=== PATIENT | female | born 1940 | race Caucasian/White ===

== ENCOUNTER 2018-06-09 04:25 | Day surgery (SDC) | payer MEDICARE, OTHER ==
[2018-06-08 16:42] VITALS: BP 159/82
--- NOTE | 2018-06-08 16:58 | PCM.EKG ---
[facility] Test Date: 2018-06-08 Test Time: 16:52:50 Pat Name: CHALINO MUKHERJEE Department: Room: Gender: F Production [employer]: DIANN : 1940 Requested By: YELENA LOPEZ Order Number: [id number] Reading MD: Measurements Intervals [place] Rate: 76 P: 67 SD: 162 QRS: 74 QRSD: 84 T: 51 QT: 408 QTc: 459 Interpretive Statements Normal sinus rhythm ST abnormality, possible digitalis effect Abnormal ECG No previous ECG available for comparison Please click the below link to view image of tracing.
[2018-06-08 17:10] LABS: BASOPHIL % 0.2 % (0.0-0.2); EOSINOPHIL # 0.2 10^3/uL (0.0-0.2); EOSINOPHIL % 1.9 % (0.0-5.0); HEMOGLOBIN 13.9 g/dL (12.0-15.0); LYMPHOCYTES % 18.1 % (24.0-44.0); MEAN CELL HGB 29.4 pg (26-34); MEAN CELL HGB CONCENTRATION 32.6 g/dL (33-37); MEAN CORP VOLUME 90.3 fL (78-100); MEAN PLATELET VOLUME 10.5 fL (7.8-11.0); MONOCYTES # 0.7 10^3/uL (0.3-0.8); MONOCYTES % 6.6 % (5.0-12.0); NEUTROPHIL # 8.1 10^3/uL (1.8-7.7); RED CELL DISTRIBUTION WIDTH 14.2 % (11.5-14.5); WHITE BLOOD CELL 11.1 10^3/uL (4.5-11.0)
[2018-06-08 17:29] LABS: CARBON DIOXIDE 28.4 mmol/L (20.0-32)
[~2018-06-09] VITALS: Ht 165.1 cm; Wt 75.7 kg
[~2018-06-09 04:25] MED LIST: ASPI-484 PO; CYAN10005 PO; ESOM40CA PO
[2018-06-09] MEDS ORDERED: LACTATED RINGERS 1,000 ML ONE ×2 (05:52→06:52)
[2018-06-09] MEDS ORDERED: LASIX ONE (05:52)
[2018-06-09] MEDS ORDERED: LIDOCAINE 2% VIAL ONE (06:36)
[2018-06-09] MEDS ORDERED: DECADRON ONE (06:36)
[2018-06-09] MEDS ORDERED: ZOFRAN ONE (06:36)
[2018-06-09] MEDS ORDERED: DIPRIVAN IV ONE (06:36)
[2018-06-09] MEDS ORDERED: SUBLIMAZE ONE (06:36)
[2018-06-09] MEDS ORDERED: VERSED ONE (06:36)
[2018-06-09 07:15] VITALS: BP 158/68
[2018-06-09] MEDS ORDERED: LACTATED RINGERS 1,000 ML IV SCH ×2 (07:30→13:00)
[2018-06-09] MEDS ORDERED: LEVAQUIN 100 ML IV ONE (07:38)
[2018-06-09] MEDS ORDERED: BENADRYL IV PRN (08:00)
[2018-06-09] MEDS ORDERED: PHENERGAN IV PRN (08:00)
[2018-06-09] MEDS ORDERED: ZOFRAN IV PRN (08:00)
[2018-06-09] MEDS ORDERED: SUBLIMAZE IV PRN (08:00)
[2018-06-09] MEDS ORDERED: VENTOLIN IH PRN (08:00)
[2018-06-09 11:30] VITALS: BP 175/92
[2018-06-09] MEDS ORDERED: LASIX IV ONE (11:30)
[2018-06-09 11:45] VITALS: BP 160/94
[2018-06-09 12:00] VITALS: BP 155/84
[2018-06-09 12:15] VITALS: BP 181/67
[2018-06-09 12:30] VITALS: BP 188/72
[2018-06-09] MEDS ORDERED: TRAM50TA PO (12:34)
[2018-06-09] MEDS ORDERED: TAMS0.4C2 PO (12:34)
[2018-06-09] MEDS ORDERED: CIPR500T86 PO (12:34)
[2018-06-09] MEDS ORDERED: LASIX IV SCH (13:00)
[2018-06-09] MEDS ORDERED: NORCO 7.5MG PO PRN (13:00)
--- NOTE | 2018-06-09 13:10 | OPH ---
DATE OF SURGERY: 06/09/2018 PREOPERATIVE DIAGNOSIS: Left renal calculi. FINAL DIAGNOSIS: Left renal calculi. PROCEDURE: Left ESWL. DESCRIPTION OF PROCEDURE: The patient was brought to the lithotripsy room, was put in supine position on lithotripsy table. A left preop renal ultrasound was then performed which revealed a stone in the upper pole of the left kidney measuring 5 mm in diameter and another stone in the mid lower pole measuring 7 mm in diameter. There was also mild hydronephrosis, which was also noted. No masses or no cysts noted. After the patient was given an LMA general anesthesia and after localization of the stone with the use of an ultrasound and a C-arm fluoroscopy, a left ESWL was then performed using a Dornier Compact Delta II Lithotripter. A total of 1500 shockwaves were delivered to these stones in different locations in the left kidney under ultrasound guidance. After fragmentation of the stone as noted in the ultrasound, procedure was terminated. The patient was awakened and was transferred to the recovery room in stable condition. Mendoza Ferrell MD DR: JORI/freeman JOB# [id number]
== END 2018-06-09 12:42 | disposition home or self-care (01) ==
LOC: SDC 04:25
PROVIDERS: ATTEND Urology
DX: N13.2 Hydronephrosis with renal and ureteral calculous obstruction (principal); K21.9 Gastro-esophageal reflux disease without esophagitis; E66.3 Overweight; Z68.27 Body mass index [BMI] 27.0-27.9, adult; Z79.82 Long term (current) use of aspirin; Z98.890 Other specified postprocedural states; Z79.2 Long term (current) use of antibiotics; Z90.710 Acquired absence of both cervix and uterus; Z98.51 Tubal ligation status; Z82.49 Family history of ischemic heart disease and other diseases of the circulatory system
CPT/HCPCS: 36415; 50590; 80051; 82565; 84520; 85025; 85610; 85730; 93005; J1100; J1956; J2001; J2250; J2405; J3010; J3490; J7120 ×2; J1940

== ENCOUNTER 2018-06-12 00:06 | Day surgery (SDC) | payer MEDICARE, OTHER ==
[2018-06-12] VITALS (7 sets, daily range): BP systolic 141–166; BP diastolic 69–91
[~2018-06-12] VITALS: Ht 165.1 cm; Wt 75.7 kg
[~2018-06-12 00:06] MED LIST changes: +CIPR500T86 PO; +TAMS0.4C2 PO; +TRAM50TA PO
[2018-06-12] MEDS ORDERED: LACTATED RINGERS 1,000 ML ONE (05:23)
[2018-06-12] MEDS ORDERED: LEVAQUIN 100 ML IV ONE (05:24)
[2018-06-12] MEDS ORDERED: LACTATED RINGERS 1,000 ML IV SCH ×2 (06:00→08:30)
[2018-06-12] MEDS ORDERED: ZOFRAN ONE (07:16)
[2018-06-12] MEDS ORDERED: DECADRON ONE (07:16)
[2018-06-12] MEDS ORDERED: SUBLIMAZE ONE (07:16)
[2018-06-12] MEDS ORDERED: DIPRIVAN IV ONE (07:16)
[2018-06-12] MEDS ORDERED: TORADOL ONE (07:16)
[2018-06-12] MEDS ORDERED: LIDOCAINE 2% VIAL ONE (07:17)
[2018-06-12] MEDS ORDERED: WATER ONE (07:17)
[2018-06-12] MEDS ORDERED: NS 3000ML IRR IR ONE (07:20)
[2018-06-12] MEDS ORDERED: SUBLIMAZE IV PRN (08:30)
[2018-06-12] MEDS ORDERED: DILAUDID IV PRN (08:30)
[2018-06-12] MEDS ORDERED: NORCO 7.5MG PO PRN (08:30)
[2018-06-12] MEDS ORDERED: LACTATED RINGERS 1,000 ML SCH (08:30)
[2018-06-12] MEDS ORDERED: PHENERGAN IV PRN (08:30)
--- NOTE | 2018-06-12 11:09 | DIREP ---
PROCEDURE:XRAY UROGRAPHY RETROGRADE COMPARISON:None. INDICATIONS:RETRO, 9 IMAGES, 56.7 SEC FLUORO, 19.12 mGy, 10cc OMNIPAQUE 240 USED FINDINGS: Eight intraoperative spot views of the abdomen and pelvis show cannulation and opacification of the left pelvocaliceal collecting structures and ureter. No hydronephrosis, persistent filling defect or stenosis identified. Fluoroscopy time 56.7 seconds. 10 cc Omnipaque 240 used CONCLUSION:Negative left retrograde urogram. See procedural report for details. Dictated by: Tiffanie Orantes MD on 06/12/2018 at 11:04 AM
--- NOTE | 2018-06-12 15:47 | OPH ---
DATE OF SURGERY: 06/12/2018 DESCRIPTION OF PROCEDURE: The patient was brought to the cystoscopy room and was put in supine position on the cystoscopy table. After the patient was given a satisfactory and adequate LMA general anesthesia, the patient was placed in the lithotomy position. The genitalia was then prepped and draped aseptically in the usual manner. First, a 23-Vietnamese cystoscope was inserted per urethra up to the bladder. With the use of the right angle lens, the bladder was visualized. There was no tumor, no calculi, no ulcerations seen. Both ureteral orifices were identified. A left retrograde was easily performed by inserting a 7-Vietnamese ureteral catheter in the left ureteral orifice and injected with Isovue dye and reveals no evidence of stone in the ureter. No evidence of obstruction and left kidney appears to be normal. At this time, the procedure was terminated. The ureteral catheter was removed and the bladder was emptied with fluid and the cystoscope was removed. The patient was then awakened, was transferred to the recovery room in stable condition. Mendoza Ferrell MD DR: JORI/freeman JOB# [id number]
== END 2018-06-12 09:18 | disposition home or self-care (01) ==
LOC: SURG 00:06
PROVIDERS: ATTEND Urology
DX: N13.30 Unspecified hydronephrosis (principal); K21.9 Gastro-esophageal reflux disease without esophagitis; Z98.890 Other specified postprocedural states; Z79.82 Long term (current) use of aspirin; Z79.899 Other long term (current) drug therapy
CPT/HCPCS: 52005; 74420; 76000; A4217; J1100; J1885; J1956; J2001; J2405; J3010; J3490; J7120; Q9966; C1758; C1769

== ENCOUNTER 2018-07-14 06:42 | Day surgery (SDC) | payer MEDICARE, OTHER ==
[2018-07-11 15:23] LABS: BASOPHIL % 0.2 % (0.0-0.2); EOSINOPHIL # 0.3 10^3/uL (0.0-0.2); EOSINOPHIL % 2.8 % (0.0-5.0); HEMOGLOBIN 13.7 g/dL (12.0-15.0); LYMPHOCYTES # 2.3 10^3/uL (1.0-4.8); LYMPHOCYTES % 24.3 % (24.0-44.0); MEAN CELL HGB 29.7 pg (26-34); MEAN CELL HGB CONCENTRATION 32.9 g/dL (33-37); MEAN CORP VOLUME 90.2 fL (78-100); MEAN PLATELET VOLUME 10.1 fL (7.8-11.0); MONOCYTES # 0.9 10^3/uL (0.3-0.8); MONOCYTES % 9.6 % (5.0-12.0); NEUTROPHIL # 5.9 10^3/uL (1.8-7.7); NEUTROPHILS % 62.9 % (41.0-85.0); WHITE BLOOD CELL 9.4 10^3/uL (4.5-11.0)
[2018-07-11 15:35] LABS: CARBON DIOXIDE 28.9 mmol/L (20.0-32)
[~2018-07-14] VITALS: Ht 165.1 cm; Wt 75.7 kg
[2018-07-14 06:39] VITALS: BP 153/73
[~2018-07-14 06:42] MED LIST changes: +DECADRON ONE; +DIPRIVAN IV ONE; +LACTATED RINGERS 1,000 ML ONE; +LASIX ONE; +LIDOCAINE 2% VIAL ONE; +SUBLIMAZE ONE; +ZOFRAN ONE
[2018-07-14] MEDS ORDERED: LACTATED RINGERS 1,000 ML IV SCH ×3 (07:00→08:30)
[2018-07-14] MEDS ORDERED: LASIX IV ONE (08:00)
[2018-07-14 08:15] VITALS: BP 151/74
[2018-07-14 08:30] VITALS: BP 137/87
[2018-07-14] MEDS ORDERED: SUBLIMAZE IV PRN (08:30)
[2018-07-14] MEDS ORDERED: LACTATED RINGERS 1,000 ML SCH (08:30)
[2018-07-14] MEDS ORDERED: LASIX IV SCH (08:30)
[2018-07-14] MEDS ORDERED: PHENERGAN IV PRN (08:30)
[2018-07-14] MEDS ORDERED: NORCO 7.5MG PO PRN (08:30)
[2018-07-14] MEDS ORDERED: EPHEDRINE SULFATE ONE (08:31)
[2018-07-14 08:35] VITALS: BP 140/76
[2018-07-14 08:50] VITALS: BP 151/97
--- NOTE | 2018-07-14 09:32 | OPH ---
DATE OF SURGERY: 07/14/2018 PREOPERATIVE DIAGNOSIS: Right renal calculus. FINAL DIAGNOSIS: Right renal calculus. PROCEDURES: Right ESWL. DESCRIPTION OF PROCEDURE: The patient was brought to the lithotripsy room, was put in supine position on lithotripsy table. A right preop renal ultrasound was initially performed, which revealed a stone in the middle pole of the right kidney, measuring 6.2 mm in diameter. There was no evidence of hydronephrosis, no cysts or masses noted. After the patient was given an LMA general anesthesia and after localization of the stone with the use of an ultrasound and a C-arm fluoroscopy, a right ESWL was then performed using a Dornier Compact Delta II lithotripter. A total of 1500 shockwave was delivered to the stones in the middle pole of the right kidney under ultrasound guidance. After fragmentation of the stone as noted in the ultrasound, the procedure was terminated. The patient was awakened, was transferred to the recovery room in stable condition. Mendoza Ferrell MD DR: JORI/freeman JOB# [id number]
== END 2018-07-14 08:58 | disposition home or self-care (01) ==
LOC: SDC 06:42
PROVIDERS: ATTEND Urology
DX: N20.0 Calculus of kidney (principal); K21.9 Gastro-esophageal reflux disease without esophagitis; E66.3 Overweight; Z98.51 Tubal ligation status; Z68.27 Body mass index [BMI] 27.0-27.9, adult; Z79.2 Long term (current) use of antibiotics; Z98.890 Other specified postprocedural states; Z79.899 Other long term (current) drug therapy; Z79.01 Long term (current) use of anticoagulants; Z90.710 Acquired absence of both cervix and uterus; Z82.49 Family history of ischemic heart disease and other diseases of the circulatory system
CPT/HCPCS: 36415; 50590; 80051; 82565; 84520; 85025; 85610; 85730; J1100; J2001; J2405; J3010; J3490 ×2; J7120; J1940

== ENCOUNTER → 2018-10-30 | Outpatient (CLI) | payer MEDICARE, OTHER ==
[~2018-10-30] MED LIST changes: -DECADRON ONE; -DIPRIVAN IV ONE; -LACTATED RINGERS 1,000 ML ONE; -LASIX ONE; -LIDOCAINE 2% VIAL ONE; -SUBLIMAZE ONE; -ZOFRAN ONE
--- NOTE | 2018-10-30 15:47 | DIREP ---
PROCEDURE:MRI JOINT LOWER EXTREMITY-RT W/O COMPARISON:None. INDICATIONS:RIGHT KNEE PAIN TECHNIQUE:A complete multi-planar MRI was performed. Patient was unable to complete protocol due to pain. Study is moderately limited. FINDINGS: LIGAMENTS:Anterior cruciate ligament and posterior cruciate ligament are normal. No gross tear of the medial collateral ligament or lateral collateral ligament complex. Limited due to lack of coronal imaging however. MENISCI:Complex tearing of the posterior horn body junction of the medial meniscus with horizontal tear extending into the posterior root attachment and posterior horn. CARTILAGE:Advanced medial compartment cartilaginous thinning and near complete denuding of the weight-bearing surface. Mild diffuse cartilaginous thinning of the lateral compartment. Normal patellofemoral cartilage.. EXTENSOR MECHANISM: Intact BONES:Severe bone marrow edema with subtle lucency on the T1 sagittal about the inferior patellar pole. Findings concerning for nondisplaced fracture. CT would be helpful to confirm or exclude JOINT SPACE:Large effusion. Prepatellar edema. Small Mcadams's cyst. Venous varicosities incidentally noted. CONCLUSION: 1. High-grade osseous contusion versus nondisplaced fracture of the inferior patellar pole. 2. Complex tearing of the posterior horn and posterior horn body junction of the medial meniscus. 3. Advanced medial compartment chondromalacia. 4. Large joint effusion with small Mcadams's cyst. Dictated by: Charles France DO on 10/30/2018 at 03:38 PM
== END | disposition home or self-care (01) ==
LOC: RAD 14:40
PROVIDERS: ATTEND Orthopaedic Surgery
DX: S83.241A Other tear of medial meniscus, current injury, right knee, initial encounter (principal); M94.261 Chondromalacia, right knee; M79.89 Other specified soft tissue disorders; M71.21 Synovial cyst of popliteal space [Baker], right knee; X58.XXXA Exposure to other specified factors, initial encounter; Y93.89 Activity, other specified; Y92.89 Other specified places as the place of occurrence of the external cause; Y99.8 Other external cause status
CPT/HCPCS: 73721

== ENCOUNTER → 2019-12-20 | Outpatient (CLI) | payer MEDICARE, OTHER ==
[~2019-12-20] MED LIST changes: +CYAN-26 PO; -CYAN10005 PO
--- NOTE | 2019-12-20 17:07 | DIREP ---
PROCEDURE:CT ABDOMEN/PELVIS W/O CONTRAST COMPARISON:None. INDICATIONS:LEFT FLANK PAIN, CALL REPORT TO DR. LOPEZ [phone] TECHNIQUE:Axial images were created through the abdomen and pelvis without intravenous contrast material. No oral contrast was administered. Sagittal and coronal reconstructions were performed from source images. FINDINGS: LOWER CHEST:The lung bases are clear. LIVER:Normal. BILIARY:Normal. PANCREAS:Normal. SPLEEN:Normal. KIDNEYS:There is a 3 mm stone in the midpole of the left kidney. There are parapelvic cysts on the left. No evidence of obstructive uropathy. Renal morphology appears unremarkable. ADRENALS:Normal. AORTA/VASCULAR:Atheromatous calcifications. RETROPERITONEUM:Normal. BOWEL/MESENTERY:Bowel evaluation is limited by the lack of oral contrast. No evidence of bowel obstruction, free intraperitoneal air, or abscess. Mild sigmoid diverticulosis. No evidence of acute diverticulitis. ABDOMINAL WALL:There is a small right inguinal hernia. A loop of small bowel is present about the factual defect; however, no evidence incarceration/strangulation. PELVIS:Hysterectomy. BONES:Levoscoliosis of the thoracolumbar spine. Degenerative disc disease at L5-S1 OTHER: The absence of IV contrast limits evaluation of the soft tissues. CONCLUSION: Nonobstructing left-sided nephrolithiasis. No evidence of ureteral calculus. There are parapelvic cyst on the left. No evidence of obstructive uropathy Dictated by: Octavia Trevizo M.D. on 12/20/2019 at 04:58 PM
== END | disposition home or self-care (01) ==
LOC: RAD 16:21
PROVIDERS: ATTEND Urology
DX: N20.0 Calculus of kidney (principal); R10.84 Generalized abdominal pain; N28.1 Cyst of kidney, acquired
CPT/HCPCS: 74176